=== PATIENT | male | born 1955 | race Caucasian/White ===

== ENCOUNTER 2023-09-21 11:11 | Emergency (ER) | payer OTHER ==
[~2023-09-21] VITALS: Ht 157.5 cm; Wt 68.0 kg
[2023-09-21 11:16] VITALS: BP 186/99; PULSE 71; RESP 16; TEMP 98.2; O2SAT 98
[2023-09-21] MEDS: ceFAZolin 1,000 MG VIAL IM ONE (12:13)
[2023-09-21 14:20] VITALS: O2SAT 98
[2023-09-21 16:19] LABS: BASOPHILS % (AUTO) 0.5 % (0.0-2.0); EOSINOPHILS % (AUTO) 0.2 % (0.0-4.0); HEMATOCRIT 45.9 % (36-52); HEMOGLOBIN 15.7 g/dL (12.0-18.0); LYMPHOCYTES # (AUTO) 1.1 K/uL (2.0-11.5); LYMPHOCYTES % (AUTO) 12.3 % (20.5-51.1); MEAN CORPUSCULAR HEMOGLOBIN 28 pg (27-31); MEAN CORPUSCULAR HGB CONC 34 g/dL (33-37); MEAN CORPUSCULAR VOLUME 82.2 fL (80-94); MONOCYTES # (AUTO) 0.4 K/uL (0.8-1.0); MONOCYTES % (AUTO) 4.2 % (1.7-9.3); NEUTROPHILS % (AUTO) 82.8 % (42.2-75.2); PLATELET COUNT (AUTO) 220 K/uL (140-450); RED BLOOD CELL COUNT(AUTO) 5.58 MIL/uL (4.20-6.10); RED CELL DISTRIBUTION WIDTH 13.6 % (11.6-13.7); WHITE BLOOD COUNT (AUTO) 8.5 K/uL (4.8-10.8)
[2023-09-21 16:30] VITALS: O2SAT 99
[2023-09-21 16:34] LABS: ANION GAP 15.7 (8-16); CALCIUM 8.7 mg/dL (8.5-10.1); CARBON DIOXIDE 27.9 mmol/L (21-32); CREATININE 0.9 mg/dL (0.6-1.3); POTASSIUM 4.6 mmol/L (3.5-5.1)
[2023-09-21 16:37] LABS: PARTIAL THROMBOPLASTIN TIME 25.2 secs (22-35.6); PROTHROMBIN TIME 10.5 secs (10.8-13.4)
[2023-09-21 16:54] LABS: ALBUMIN 4.1 g/dL (3.4-5.0); BILIRUBIN,DIRECT 0.1 mg/dL (0.0-0.3); MAGNESIUM 2.1 mg/dL (1.8-2.4); PHOSPHORUS 3.5 mg/dL (2.5-4.9); TOTAL BILIRUBIN 0.6 mg/dL (0.0-1.0); TOTAL PROTEIN, SERUM 8.9 g/dL (6.4-8.2)
[2023-09-21 18:30] VITALS: O2SAT 99
[2023-09-21 19:41] VITALS: BP 191/89; PULSE 78; RESP 19; TEMP 98.3; O2SAT 99
[2023-09-21] MEDS ORDERED: CEPH-588 PO (20:23)
== END 2023-09-21 21:16 | disposition left against medical advice (07) ==
LOC: MED 11:11
DX: S61.311A Laceration without foreign body of left index finger with damage to nail, initial encounter (principal); Z20.822 Contact with and (suspected) exposure to COVID-19; W22.8XXA Striking against or struck by other objects, initial encounter; Y93.89 Activity, other specified; Y92.89 Other specified places as the place of occurrence of the external cause; Y99.8 Other external cause status
CPT/HCPCS: 36415; 73140; 80048; 80076; 83735; 84100; 85025; 85610; 85730; 87426; 90471; 90715; 96372; 99285; J0690